=== PATIENT | female | born 1995 ===

== ENCOUNTER 2017-04-05 10:59 | Emergency (ER) | payer OTHER ==
[2017-04-05] MEDS ORDERED: Ketorolac INJ* 30 MG/ML 1 ML VIAL IV PUSH ONE (12:34)
[2017-04-05] MEDS ORDERED: NS 0.9% 1000 ML* 1,000 ML IV ONE (12:34)
--- NOTE | 2017-04-05 14:19 | UC ---
Headache HPI - HPI Summary HPI Summary: THREE DAYS OF HEADACHE, FEVER, BODY ACHES. TOOK TYLENOL LAST NIGHT. NO COUGH. NO SORE THRAOT TODAY (MILD ST YESTERDAY). NO ABDOMINAL PAIN. NO RASHES. NO TICK BITES. NO HISTORY OF MIGRANES. HAD MILD NECK STIFFNESS YESTERDAY RESOLVED. NO PAIN WITH NECK FLEXION TODAY. - History Of Current Complaint Chief Complaint: UCHeadache Stated Complaint: MIGRAINE, FEVER Time Seen by Provider: 04/05/17 12:19 Hx Obtained From: Patient, Family/Retirement Administrator Hx Last Menstrual Period: now Onset/Duration: Gradual Onset, Lasting Days, Still Present Onset Of Symptoms: Gradual, Still Present Pain Intensity: 1 Pain Scale Used: 0-10 Numeric Timing: Intermittent, Lasting: Character: Dull, Throbbing, Typical Headache Location of Headache: Temporal, Occipital Aggravating Factor: Bright Lights Allevating Factors: Nothing Associated Signs And Symptoms: Positive: Fever. Negative: Dizziness, Seizure, Nausea, Vomiting, Sinus Pressure, Neck Pain, Neck Stiffness, Decreased LOC, Visual Changes - Risk Factors SAH Risk Factors: Negative Meningitis Risk Factors: Negative SDH Risk Factors: Negative Temporal Arteritis Risk Factors: Negative - Allergies/Home Medications Allergies/Adverse Reactions: Allergies Allergy/AdvReac Type Severity Reaction Status Date / Time No Known Allergies Allergy Verified 04/05/17 11:15 Home Medications: Home Medications Acetaminophen TAB* [Tylenol TAB*] 04/05/17 [History] Aspirin [Espinoza Aspirin 325 MG] 04/05/17 [History] PMH/Surg Hx/FS Hx/Imm Hx Previously Healthy: Yes - Surgical History Surgical History: None - Family History Known Family History: Negative: Seizure Disorder - Social History Occupation: Employed Full-time Lives: With Family Alcohol Use: None Substance Use Type: None Smoking Status (MU): Light Every Day Tobacco Smoker Review of Systems Constitutional: Fever, Chills Skin: Negative Eyes: Negative ENT: Negative Respiratory: Negative Cardiovascular: Negative Gastrointestinal: Negative Genitourinary: Negative Motor: Negative Neurovascular: Negative Musculoskeletal: Myalgia Neurological: Headache Psychological: Negative All Other Systems Reviewed And Are Negative: Yes Physical Exam Triage Information Reviewed: Yes Appearance: No Pain Distress, Well-Nourished, Ill-Appearing - MILDLY, Thin Vital Signs: Initial Vital Signs Temp 98.6 F 04/05/17 11:11 Pulse 103 04/05/17 11:11 Resp 12 04/05/17 11:11 BP 106/67 04/05/17 11:11 Pulse Ox 98 04/05/17 11:11 Vital Signs Reviewed: Yes Eye Exam: Normal ENT Exam: Normal ENT: Positive: Normal ENT inspection, Hearing grossly normal, Pharynx normal, TMs normal Dental Exam: Normal Neck exam: Normal Neck: Positive: Supple, Nontender, No Lymphadenopathy. Negative: Nuchal Rigidity, Tenderness @, Enlarged Nodes @ Respiratory Exam: Normal Respiratory: Positive: Chest non-tender, Lungs clear, Normal breath sounds, No respiratory distress, No accessory muscle use Cardiovascular Exam: Normal Cardiovascular: Positive: RRR, No Murmur, Pulses Normal Abdominal Exam: Normal Abdomen Description: Positive: Nontender, No Organomegaly, Soft. Negative: CVA Tenderness (R), CVA Tenderness (L) Musculoskeletal Exam: Normal Musculoskeletal: Positive: Strength Intact, ROM Intact, No Edema Neurological Exam: Normal Neurological: Positive: Alert, Muscle Tone Normal Psychological Exam: Normal Psychological: Positive: Normal Response To Family Skin Exam: Normal Headache Course/Dx - Differential Dx/Diagnosis Differential Diagnosis/HQI/PQRI: Meningitis, Migraine, Sinus Headache, Tension Headache, Viral Syndrome Provider Diagnoses: HEADACHE; VIRAL SYNDROME Discharge - Discharge Plan Condition: Stable Disposition: HOME Patient Education Materials: Acute Headache (ED), Viral Syndrome (ED) Forms: *Work Release Referrals: [facility]YSICIAN REFERRAL [Outside] No Primary Care Phys,NOPCP [Primary Care Provider] - Additional Instructions: PLEASE SEEK CARE AT EMERGENCY DEPARTMENT IF YOU DEVELOP WORSENING HEADACHE, NECK STIFFNESS, FEVER, OR ANY NEW OR WORSENING SYMPTOMS.
[2017-04-05 20:14] LABS: Hematocrit 40 % (35-47); Hemoglobin 13.4 g/dl (12.0-16.0); Mean Corpuscular HGB Conc 33 g/dl (31-36); Mean Corpuscular Hemoglobin 29 pg (27-31); Mean Corpuscular Volume 87 fL (80-97); Mean Platelet Volume 11 um3 (7.4-10.4); Red Blood Count 4.62 10^6/ul (4.0-5.4); Red Cell Distribution Width 13 % (10.5-15); White Blood Count 6.2 10^3/ul (3.5-10.8)
[2017-04-05 20:27] LABS: Manual Entry Verification MD; Mono Internal Control QC Line Present
--- NOTE | 2017-04-06 08:15 | UC ---
Progress - Progress Note Progress Note: call patient notify patient that mono is negative---
== END 2017-04-05 14:01 | disposition home or self-care (01) ==
LOC: UCEAST 10:59
DX: R51 Headache (principal); B34.9 Viral infection, unspecified; F17.210 Nicotine dependence, cigarettes, uncomplicated
CPT/HCPCS: 36415; 85025; 86308; 96374; 99201; G0463; J1885